=== PATIENT | female | born 1965 | race Caucasian/White ===

== ENCOUNTER 2017-01-07 20:07 | Emergency (ER) | payer SELFPAY ==
[~2017-01-07] VITALS: Ht 162.6 cm; Wt 75.5 kg
[2017-01-07 20:12] VITALS: Ht 162.6 cm; Wt 75.5 kg
[2017-01-07] MEDS ORDERED: IBUPROFEN 800 MG TAB PO ONE (20:30)
[2017-01-07] MEDS ORDERED: ALPRAZOLAM 1 MG TAB PO ONE (20:30)
[2017-01-07 20:50] VITALS: TEMP 98.1
[2017-01-07] MEDS ORDERED: IBUP-1542 PO (21:06)
[2017-01-07] MEDS ORDERED: ALPR1TAB2 PO (21:06)
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
--- NOTE | 2017-01-07 21:09 | RADRPT ---
PROCEDURE: XR Chest. CLINICAL INDICATION: Chest pain. TECHNIQUE: Single frontal view of the chest was obtained in apical lordotic position. COMPARISON: None. FINDINGS: Mild cardiomegaly. The lungs are clear. No signs of pleural fluid or pneumothorax are seen. The oss eous structures and soft tissues are unremarkable. IMPRESSION: No evidence for active cardiopulmonary disease. RPTAT: [facility] Physician Michael Date Time Electronically viewed and signed by Physician Michael on 01/07/2017 21:09 RS/
[2017-01-07 21:37] VITALS: BP 119/74; PULSE 98; RESP 23
== END 2017-01-07 22:07 | disposition home or self-care (01) ==
LOC: E/R 20:07
DX: R07.9 Chest pain, unspecified (principal); E11.9 Type 2 diabetes mellitus without complications; J45.909 Unspecified asthma, uncomplicated
CPT/HCPCS: 36415; 71010; 93005